=== PATIENT | female | born 2000 | race Caucasian/White ===

== ENCOUNTER 2020-05-10 15:48 | Observation (INO) | payer BC, SELFPAY ==
[2020-05-10 15:30] VITALS: BP 113/63; PULSE 75
[2020-05-10 15:41] VITALS: BP 107/68; PULSE 68; BMI 32.3
[2020-05-10] MEDS: BETAMETHASONE SOD PHOS/ACETATE 30 MG/5 ML VIAL 12 MG IM (16:04)
[2020-05-10 16:08] LABS: Add Urine Microscopic? YES; Amorphous Sediment Urine Few; Appearance Urine Clear (Clear); Bilirubin Urine Negative (Negative); Blood Urine Negative (Negative); Color Urine Straw (Yellow); Glucose Urine UA Negative (Negative); Ketones Urine Negative (Negative); Leukocyte Esterase Ur Trace LEU/UL (Negative); Nitrate Urine Negative (Negative); Protein Urine Negative (Negative); RBC Urine 0-2 /hpf (0-2); Specific Grav Ur 1.006 (1.001-1.035); Squamous Epithelial Cell Urine Many /hpf (Few); Urobilinogen Urine Negative mg/dL (<2.0)
--- NOTE | 2020-05-10 16:08 | OBADM ---
This patient, Marva Benavides, admitted to the OB room OB Post 117 for observation. Patient/family oriented to hospital policies and general routines including ID bracelet, bed and alarms, visiting hours, pain management, procedures, bathroom and other care routines, personal items, smoking policy, room service/diet, call light, and visiting hours. Patient/Family are encouraged to report perceived risks to care and to ask questions if they do not understand what they are told or what they should do.
--- NOTE | 2020-05-18 08:20 | PM.OBTRLD ---
OB - Triage/Final Diagnosis Evaluation Laboratory results: Laboratory Tests 05/10/20 15:59 Urine Color Straw Urine Appearance Clear Urine pH 7.0 Ur Specific [place] 1.006 Urine Protein Negative Urine Glucose (UA) Negative Urine Ketones Negative Ur Blood (Man) Negative Urine Nitrate Negative Urine Bilirubin Negative Urine Urobilinogen Negative Leukocyte Esterase Rfl Trace H Urine RBC 0-2 Urine WBC 4-6 H Ur Squamous Epith Cells Many H Amorphous Sediment Few H Final Diagnosis (1) contractions: Code(s): O47.9 - False labor, unspecified Status: Acute
== END 2020-05-10 16:34 | disposition home or self-care (01) ==
LOC: ANHOBPP 15:48
PROVIDERS: Admitting Provider Obstetrics & Gynecology; PCP Family Medicine; Visit Provider Obstetrics & Gynecology
DX: O47.9 False labor, unspecified (principal); Z3A.00 Weeks of gestation of pregnancy not specified
CPT/HCPCS: 59025; 81001; 96372; G0378; G0379; J0702

== ENCOUNTER 2020-05-11 15:47 | Outpatient (CLI) | payer BC, SELFPAY ==
[2020-05-11] MEDS: BETAMETHASONE SOD PHOS/ACETATE 30 MG/5 ML VIAL 12 MG IM (16:11)
== END 2020-05-11 15:48 | disposition home or self-care (01) ==
LOC: ANHOBOP 15:55
PROVIDERS: PCP Family Medicine; Visit Provider Obstetrics & Gynecology
DX: O36.8990 Maternal care for other specified fetal problems, unspecified trimester, not applicable or unspecified (principal); Z3A.00 Weeks of gestation of pregnancy not specified
CPT/HCPCS: 96372; J0702

== ENCOUNTER 2020-05-27 10:41 | Observation (INO) | payer BC, SELFPAY ==
[2020-05-27 11:05] VITALS: TEMP 36.4
[2020-05-27 11:10] VITALS: BMI 28.3
--- NOTE | 2020-05-27 11:15 | OBADM ---
This patient, Marva Benavides, admitted to the OB room Labor/Delivery/Recovery 105 for observation. Patient/family oriented to hospital policies and general routines including ID bracelet, bed and alarms, visiting hours, pain management, procedures, bathroom and other care routines, personal items, smoking policy, room service/diet, and visiting hours. Patient/Family are encouraged to report perceived risks to care and to ask questions if they do not understand what they are told or what they should do.
--- NOTE | 2020-06-06 09:44 | PM.OBTRLD ---
OB - Triage/Final Diagnosis Visit Information Comments/Additional reasons for admission: I have assessed the risk for this patient, Marva Benavides, and determined that she would benefit from observation care. Final Diagnosis (1) contractions: Code(s): O47.9 - False labor, unspecified Status: Acute
== END 2020-05-27 12:40 | disposition home or self-care (01) ==
PROVIDERS: Admitting Provider Obstetrics & Gynecology; PCP Family Medicine; Visit Provider Obstetrics & Gynecology
DX: O47.03 False labor before 37 completed weeks of gestation, third trimester (principal); Z3A.36 36 weeks gestation of pregnancy
CPT/HCPCS: G0378; G0379

== ENCOUNTER 2020-06-14 05:58 | Inpatient (IN) | payer BC, SELFPAY ==
[2020-06-14] VITALS (162 sets, daily range): BP systolic 83–182; BP diastolic 39–103; PULSE 65–137; RESP 16–17; TEMP 36.2–37; O2SAT 93–100; BMI 32.5
--- OUTSIDE RECORDS SUMMARY | 2020-06-14 06:05 | XMS_ITS | Encounter Summary ---
:2000 Author Care Team Providers Name Role Phone Jessica Vera MD Primary Care Provider [phone] Reason for Visit return OB visit Assessment and Plan 1. Routine care ? streptococcus group B, cul ture, vaginal or rectal Discussion Note: None recorded.Patient educational handouts: No information available. Plan of Care Reminders Provider Appointments None recorded. ? ? Lab Streptococcus Gat [facility], Culture, Vaginal 05/18/2020 [facility] (Lab) or Rectal Referral None recorded. ? ? Procedures None recorded. ? ? Surgeries None recorded. ? ? Imaging None recorded. ? ? Medications No Medications Reported Notes: ; fe supplement d aily Medications Administered None recorded. Vitals Weight Blood Pressure 205 lbs 118/76 mm[Hg] Results Lab Results None recorded. Allergies Code Code System Name Reaction Severity Onset NKDA ? ? ? Problems Name Status Onset Date Source ? Active 12/08/2019 ? Tinea Corporis Active ? ?
--- OUTSIDE RECORDS SUMMARY | 2020-06-14 06:05 | XMS_ITS ---
:2000 Author Care Team Providers Name Role Phone VERONICA VILLAVICENCIO MD Primary Care Provider [phone] Allergies Code Code System Name Reaction Severity Status Onset NKDA ? Medications Name Status Start Date Stop Date ? ? acetaminophen 325 mg tablet Completed ? 11/27 TAKE 1 TABLET BY MOUTH EVERY 8 HOURS NEEDED Liliya-D 24 Hour 180 mg-240 mg tablet,extended release Complete d ? 12/08/2019 TAKE 1 TABLET BY MOUTH DAILY amitriptyline 10 mg tablet Completed ? 12/07 amoxicillin 500 mg capsule Completed ? 12/07 TAKE ONE CAPSULE BY MOUTH EVERY 8 HOURS FOR 7 DAYS amoxicillin 500 mg tablet Completed ? 2013 Take 1 tablet twice a day by oral route for 10 days. amoxicillin 875 mg tablet Unknown ? Not av ailable TK 1 T PO Q 12 H amoxicillin 875 mg-potassium clavulanate 125 mg tablet Completed ? 12/08/2019 TK 1 T PO Q 12 H FOR 7 DAYS azithromycin 250 mg tablet Unknown ? Not a vailable TK 2 TS PO ON DAY 1 THEN TK 1 T PO DAILY FOR 4 DAYS azithromycin 500 mg tablet Completed ? 12/07 TAKE 1 TABLET BY MOUTH TWICE A DAY benzonatate 100 mg capsule Completed ? 12/07 Take 1 capsule 3 times a day by oral route as needed for 10 day s. buspirone 10 mg tablet Completed ? 9 TAKE 1 TABLET BY MOUTH TWICE A DAY cephalexin 500 mg capsule Completed ? 2016 TAKE 1 CAPSULE(S) TWICE A DAY BY ORAL ROUTE FOR 7 DAYS. clobetasol 0.05 % scalp solution Unknown ? Not available APPLY A FEW DROPS TO SCALP EACH TRINIDAD
--- OUTSIDE RECORDS SUMMARY | 2020-06-14 06:05 | XMS_ITS | Encounter Summary ---
:2000 Author Care Team Providers Name Role Phone Jessica Vera MD Primary Care Provider [phone] Reason for Visit return OB visit Assessment and Plan 1. Routine care Discussion Note: None recorded.Patient educational handouts: No information available. Plan of Care Reminders Provider Appointments None ? ? recorded. Lab None ? ? recorded. Referral None ? ? recorded. Procedures None ? ? recorded. Surgeries None ? ? recorded. Imaging None ? ? recorded. Medications No Medications Reported Notes: ; fe supplement d aily Medications Administered None recorded. Vitals Weight Blood Pressure 206 lbs 108/78 mm[Hg] Results Lab Results None recorded. Allergies Code Code System Name Reaction Severity Onset NKDA ? ? ? Problems Name Status Onset Date Source ? Active 12/08/2019 ? Tinea Corporis Active ? ? Insomnia Active ? ? Seizure Disorder Active ? ? Otitis Media Active ? ? Referred Otalgia Active ? ?
--- OUTSIDE RECORDS SUMMARY | 2020-06-14 06:05 | XMS_ITS | Encounter Summary ---
:2000 Author Care Team Providers Name Role Phone Jessica Vera MD Primary Care Provider [phone] Reason for Visit return OB visit Assessment [...] Administered None recorded. Vitals Weight Blood Pressure 206.8 lbs 122/82 mm[Hg] Results Lab Results None recorded. Allergies Code Code System Name Reaction Severity Onset NKDA ? ? ? Problems Name Status Onset Date Source ? Active 12/08/2019 ? Tinea Corporis Active ? ? Insomnia Active ? ? Seizure Disorder Active ? ? Otitis Media Active ? ? Referred Otalgia Active ? ?
--- OUTSIDE RECORDS SUMMARY | 2020-06-14 06:05 | XMS_ITS | Encounter Summary ---
:2000 Author Care Team Providers Name Role Phone Jessica Vera MD Primary Care Provider [phone] Reason for Visit return OB visit Assessment [...] Administered None recorded. Vitals Weight Blood Pressure 203 lbs 122/82 mm[Hg] Results Lab Results None recorded. Allergies Code Code System Name Reaction Severity Onset NKDA ? ? ? Problems Name Status Onset Date Source ? Active 12/08/2019 ? Tinea Corporis Active ? ? Insomnia Active ? ? Seizure Disorder Active ? ? Otitis Media Active ? ? Referred Otalgia Active ? ?
--- OUTSIDE RECORDS SUMMARY | 2020-06-14 06:05 | XMS_ITS | Encounter Summary ---
:2000 Author Care Team Providers Name Role Phone Jessica Vera MD Primary Care Provider [phone] Reason for Visit return OB visit Assessment [...] Administered None recorded. Vitals Weight Blood Pressure 205.6 lbs 100/70 mm[Hg] Results Lab Results None recorded. Allergies Code Code System Name Reaction Severity Onset NKDA ? ? ? Problems Name Status Onset Date Source ? Active 12/08/2019 ? Tinea Corporis Active ? ? Insomnia Active ? ? Seizure Disorder Active ? ? Otitis Media Active ? ? Referred Otalgia Active ? ?
--- OUTSIDE RECORDS SUMMARY | 2020-06-14 06:05 | XMS_ITS | Encounter Summary ---
:2000 Author Care Team Providers Name Role Phone Jessica Vera MD Primary Care Provider [phone] Reason for Visit return OB visit Assessment [...] recorded. Vitals Weight Blood Pressure 205 lbs 110/78 mm[Hg] Results Lab Results None recorded. Allergies Code Code System Name Reaction Severity Onset NKDA ? ? ? Problems Name Status Onset Date Source ? Active 12/08/2019 ? Tinea Corporis Active ? ? Insomnia Active ? ? Seizure Disorder Active ? ? Otitis Media Active ? ? Referred Otalgia Active ? ?
--- OUTSIDE RECORDS SUMMARY | 2020-06-14 06:05 | XMS_ITS | Encounter Summary ---
:2000 Author Care Team Providers Name Role Phone Jessica Vera MD Primary Care Provider [phone] Reason for Visit return OB visit Assessment [...] recorded. Vitals Weight Blood Pressure 205 lbs 112/70 mm[Hg] Results Lab Results None recorded. Allergies Code Code System Name Reaction Severity Onset NKDA ? ? ? Problems Name Status Onset Date Source ? Active 12/08/2019 ? Tinea Corporis Active ? ? Insomnia Active ? ? Seizure Disorder Active ? ? Otitis Media Active ? ? Referred Otalgia Active ? ?
--- NOTE | 2020-06-14 06:41 | P.HP_ITS ---
H&P: HPI History of Present Illness Date/Time: 06/14/20 06:41 Chief Complaint: induction of labor Narrative: Marva Benavides is a 20yo @ 39.0wks (EMIL 06/21/20) who presents for scheduled induction of labor. She reports good movement. No vaginal bleeding or leakage of fluid. She has has regular care. Her is complicated by: - H/o childhood seizure disorder - H/o contractions, s/p ANCS - Varicella and rubella non-immune Review of Systems Constitutional: Constitutional: Denies chills and Denies fever(s) Eyes: Eyes: Denies change in vision Cardiovascular: Cardiovascular: Denies chest pain and Denies rapid heart rate Respiratory: Respiratory: Denies cough and Denies dyspnea Gastrointestinal: Gastrointestinal: Denies nausea and Denies vomiting Genitourinary: Genitourinary: Denies vaginal discharge Neurologic: Denies headache(s) Psychiatric: Psychiatric: Denies anxiety and Denies depression [facility] Family History Family History Sibling Down syndrome Social History Social History Substance use: never Gender identity (if verbalized by the patient): Female Spiritual care concerns: No Meds Home Medications and Allergies Home Medications Medication Instructions Recorded Confirmed Type PNV cmb#95-ferrous fumarate-FA 1 tablet PO DAILY 05/23/20 05/23/20 History [] ferrous sulfate [Iron (ferrous 325 mg PO DAILY 05/23/20 05/23/20 History sulfate)] Allergies Allergy/AdvReac Type Severity Reaction Status Date / Time No Known Allergies Allergy Mild Verified 05/10/20 16:25 Vital Signs Vital Signs - 24 hr 06/14/20 06:19 Pulse Rate 94 Blood Pressure 115/78 Exam Const: General: cooperative, comfortable and no acute distress Resp: Effort & Inspection: normal respiratory effort and able to speak in complete sentences Cardio: Rate: regular rate GI: GI Palp: No abdominal tenderness and Yes Soft to palpation : Other: FHT's: 140's/ mod luis/ + accels/ no decels - cat 1 TOCO: irregular contractions Membranes: AROM, clear 0710 Presentation: cephalic Cervix: 3.5/50/-2 Skin: General skin exam: normal color Neuro: General: patient oriented x3 Extrem: General: normal to inspection Psych: Appearance: grossly normal Affect: normal affect Attitude: cooperative Assessment and Plan Assessment and plan (1) Encounter for induction of labor: Code(s): Z34.90 - Encounter for supervision of normal , unspecified, unspecified trimester Status: Acute (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
[2020-06-14 06:58] LABS: Basophils Percent Auto 0.3 % (0.2-1.2); Eosinophils Absolute Auto 0.1 K/mm3 (0-0.3); Eosinophils Percent Auto 0.6 % (0-4.4); Hematocrit 35.7 % (37.0-47.0); Hemoglobin 11.9 g/dL (12.0-15.0); Immature Granulocyte Absolute 0.19 K/mm3 (0.00-0.031); Immature Granulocyte Percent A 1.2 % (0-0.5); Lymphocytes Absolute Auto 2.08 K/mm3 (0.9-3.2); Lymphocytes Percent Auto 13.6 % (18.3-44.2); Mean Corpuscular HGB Conc 33.3 g/dl (32-36); Mean Corpuscular Hemoglobin 30.4 pg (26-34); Mean Corpuscular Volume 91.1 fl (80-100); Mean Platelet Volume 10.2 fl (7.4-10.4); Monocytes Absolute Auto 0.9 K/mm3 (0.1-0.6); Monocytes Percent Auto 5.6 % (2.6-8.5); Neutrophils Absolute Auto 12.1 K/mm3 (1.3-6.7); Neutrophils Percent Auto 78.7 % (45.5-73.1); Platelet Count Result 282 k/mm3 (150-375); Red Blood Count 3.92 M/mm3 (4.2-5.4); Red Cell Distribution Width 13.4 % (11.5-14.5); White Blood Count 15.3 K/mm3 (4.5-10.0)
[2020-06-14] MEDS: LACTATED RINGERS 1,000 ML 125 ML IV CONT ×2 (07:01→11:31)
[2020-06-14] MEDS: OXYTOCIN 30 UNITS/NS 500 ML 30 UNITS/500 ML BAG IV CONT (07:02)
--- NOTE | 2020-06-14 07:09 | LDADM ---
This patient, Marva Benavides, was admitted to Labor/Delivery/Recovery 107 on 06/14/20 at 05:58. Plans for labor, pain management and were discussed with patient. Patient/family oriented to hospital policies and general routines including ID bracelet, bed and alarms, visiting hours, pain management, procedures, bathroom and other care routines, personal items, smoking policy, room service/diet and guest tray routines, security routines, and visiting hours. Patient/Family are encouraged to report perceived risks to care and to ask questions if they do not understand what they are told or what they should do. See OBIX for further documentation.
--- NOTE | 2020-06-14 07:12 | WPDHPUPDATE1 ---
History and Physical Update Update Date/Time: 06/14/20 07:12 History and Physical has been reviewed, including an updated exam of the patient. There are NO changes in the patient's condition. Risks, benefits, and alternatives have been discussed and questions answered. Patient agrees to proceed with procedure.
[2020-06-14 10:32] LABS: Rapid Plasma Reagin Non-Reactive (NonReactive)
[2020-06-14] MEDS: fentaNYL CITRATE INJ (*CRX) 100 MCG/2 ML VIAL IV PUSH (11:31)
--- NOTE | 2020-06-14 11:45 | WPDANESEPP ---
Anes - Eval Pre Procedure Procedure: labor epidural Date/Time: 06/14/20 11:45 Surgeon: thu Preop Diagnosis: pain during labor Pre Op Diagnosis: IOL Patient Data Age: 20 Gender: F Height: 5 ft 7 in Weight: 94.09 kg Last Vital Signs Temp 36.4 C 06/14/20 09:00 Pulse 79 06/14/20 11:15 BP 115/76 06/14/20 11:15 Allergies Allergy/AdvReac Type Severity Reaction Status Date / Time No Known Allergies Allergy Mild Verified 05/10/20 16:25 Home Medications Medication Instructions Recorded Confirmed Type PNV cmb#95-ferrous fumarate-FA 1 tablet PO DAILY 05/23/20 05/23/20 History [] ferrous sulfate [Iron (ferrous 325 mg PO DAILY 05/23/20 05/23/20 History sulfate)] Laboratory Tests 06/14/20 06/14/20 06/14/20 06:19 06:19 06:19 WBC 15.3 K/mm3 H K/mm3 (4.5-10.0) RBC 3.92 M/mm3 L M/mm3 (4.2-5.4) Hgb 11.9 g/dL L g/dL (12.0-15.0) Hct 35.7 % L % (37.0-47.0) MCV 91.1 fl fl (80-100) MCH 30.4 pg pg (26-34) MCHC 33.3 g/dl g/dl (32-36) RDW 13.4 % % (11.5-14.5) Plt Count 282 k/mm3 k/mm3 (150-375) MPV 10.2 fl fl (7.4-10.4) Immature Gran % (Auto) 1.2 % H % (0-0.5) Neut % (Auto) 78.7 % H % (45.5-73.1) Lymph % (Auto) 13.6 % L % (18.3-44.2) [place] % (Auto) 5.6 % % (2.6-8.5) Eos % (Auto) 0.6 % % (0-4.4) Baso % (Auto) 0.3 % % (0.2-1.2) Lymph # (Auto) 2.08 K/mm3 K/mm3 (0.9-3.2) [place] # (Auto) 0.9 K/mm3 H K/mm3 (0.1-0.6) Eos # (Auto) 0.1 K/mm3 K/mm3 (0-0.3) Baso # (Auto) 0.0 K/mm3 K/mm3 (0.0-0.1) Abs Immat Gran (auto) 0.19 K/mm3 H K/mm3 (0.00-0.031) Absolute Neuts (auto) 12.1 K/mm3 H K/mm3 (1.3-6.7) Absolute Nucleated RBC 0.0 K/mm3 K/mm3 (0.0-0.012) Nucleated RBC % 0.0 % % (0.0-0.2) RPR Non-reactive (NonReactive) Blood Type O Positive Antibody Screen Negative : gestational age (EMIL 06/21/20) Patient hx anesthesia problems: none Family hx anesthesia problems: none PMFSH Family History Family History Sibling Down syndrome Social History Social History Smoking status: Never smoker Substance use: never Gender identity (if verbalized by the patient): Female Spiritual care concerns: No Exam Day of Procedure 06/14/20 11:45 Patient weight: obese Heart: regular rate and rhythm Lungs: clear to auscultation Neurological: alert and oriented
--- NOTE | 2020-06-14 12:38 | PM.OBPNLAB ---
Pain Control Date/time seen: 06/14/20 12:38 Pain control: epidural Pelvic Exam Dilation (cm): 4 Effacement (%): 70 station: -2 Amniotic membrane status: Ruptured Contractions Monitor mode: External Contraction frequency: 2 Contraction pattern: Regular Status status: Category ll Comments: 130's/ mod luis/ + accels/ occasional mild variable decels -- overall reassuring Assessment and Plan Pitocin rate (mU/min): 26 Assessment: induction ongoing Plan: continuous present management
--- NOTE | 2020-06-14 17:02 | PM.OBPNLAB ---
Pain Control Date/time seen: 06/14/20 17:02 Pain control: tolerating well and epidural Pelvic Exam Dilation (cm): 7 (.5) Effacement (%): 100 station: -1 Amniotic membrane status: Ruptured Contractions Monitor mode: External Contraction frequency: 2 Contraction pattern: Regular Status status: Category ll Comments: 130's/mod luis/ + accels/ occasional variables - overall reassuring Assessment and Plan Pitocin rate (mU/min): 20 Assessment: active labor Plan: continuous present management
--- NOTE | 2020-06-14 18:42 | PM.OBPRVD ---
OB - Delivery Note Procedure Delivery date: 06/14/20 events: Labor Induction Intrapartal events: Deceleration Induction method: per pitocin protocol Delivery augmentation: rupture of membranes Delivery monitor: external FHT and internal uterine Route of delivery: Laceration Description: Vaginal - 1st Degree (right) and Vaginal - 2nd Degree (left) Delivery repair: vicryl Quantitative Blood Loss (ml): 300 Anesthesia type: Epidural Disposition: floor Narrative: Patient rapidly progressed to complete dilation with desire to push. With good maternal effort after approximately 45 minutes, she delivered the head over intact perineum. No nuchal cord was palpated. She easily delivered the shoulders and body without complications. The had spontaneous cry and was immediately placed skin to skin. Delayed cord clamping was performed. The umbilical cord was then clamped and cut. With Pitocin running and gentle downward traction on the umbilical cord the placenta delivered without complications. Bimanual massage was performed showing good uterine tone. The cervix, vagina, perineum were examined and bilateral labial lacerations were noted. The labial lacerations were repaired using 3 0 Vicryl in a running fashion. Good hemostasis was noted. Good uterine tone and hemostasis were noted. Sponge, lap, instrument, and needle counts were correct at the end of the procedure. Mom and baby were left bonding in the birthing suite in a stable condition. [place] Baby Date of : 06/14/20 Time of : 18:23 Weeks of gestation at delivery: 39 Infant gender: Female Weight (pounds): 6 Weight (ounces): 15 presentation: vertex position: Left Occiput Anterior Placenta delivery description: Expressed cord vessel description: 3 Vessels score one minute: 9 score five minutes: 9
[2020-06-14] MEDS: OXYTOCIN 30 UNITS/NS 500 ML 30 UNITS/500 ML BAG 125 UNITS IV CONT (18:47)
[2020-06-14] MEDS: IBUPROFEN 600 MG TABLET PO (21:20)
[2020-06-14] MEDS: BENZOCAINE 20% AER SPR (*SP) 56 GM CAN 1 SPRAY TOPICAL (21:21)
[2020-06-14] MEDS: WITCH HAZEL 40 PADS 1 PAD TOPICAL (21:21)
--- NOTE | 2020-06-14 21:52 | OBPPTRN ---
Patient transferred to post room #292 via wheelchair with in crib. Support person present. Oriented to unit, room, information board, rooming in, admission packet and security measures. Patient verbalizes understanding.
[2020-06-15 04:50] VITALS: BP 100/61; PULSE 80; RESP 18; TEMP 36.9; O2SAT 98
[2020-06-15 05:54] LABS: Hematocrit 30.3 % (37.0-47.0)
--- NOTE | 2020-06-15 07:24 | WPDANLDPN2 ---
Anes-Prog Note L&D Date/Time: 06/15/20 07:24 Comfortable throughout: labor and delivery Neuraxial method: epidural Epidural/Spinal procedure site: clean & non-tender Neuro status: Neuro function grossly intact. Cardiovascular status: normal Respiratory status: normal Airway patency: baseline Mental status: baseline Post-Op hydration status: normal Vital Signs: Last Vital Signs Temp 36.9 C 06/15/20 04:50 Pulse 80 06/15/20 04:50 Resp 18 06/15/20 04:50 BP 100/61 06/15/20 04:50 Pulse Ox 98 06/15/20 04:50 Pain score (VAS): 0 I/O: Intake & Output 06/14/20 06/14/20 06/15/20 15:59 23:59 07:59 Intake Total 1000 500 Output Total 73 Balance 1000 427 Post-procedural complaints: none Patient feedback: Patient satisfied with anesthetic care.
[2020-06-15] MEDS: ACETAMINOPHEN 325 MG TABLET 650 MG PO (11:03)
[2020-06-15 12:00] VITALS: BP 101/64; PULSE 96; RESP 18; O2SAT 100
[2020-06-15] MEDS: TETANUS,DIPHTHERIA,AC PERTUSSIS ADULT (0.5 ML) BOOSTRIX IM (13:17)
[2020-06-15 18:00] VITALS: BP 103/65; PULSE 62; PULSE 80; RESP 18; O2SAT 100; O2SAT 98
--- NOTE | 2020-06-15 18:04 | PM.OBPNVD ---
OB - PN: Subj Subjective Date/time seen: 06/15/20 18:04 PPD#1 Marva reports doing well today. She reports mild vaginal pain and cramping but improved with PO meds. Her bleeding has lightened. She has tolerated regular diet w/o issue. She has voided and passed gas. She has ambulated w/o symptoms of anemia. She is breast feeding. She would like to go home tomorrow. She denies fever, chills, CP, SOB, dizziness, ALEJANDRA, vision changes, N/V, or palpitations. OB - PN: Obj Data Labs CBC & Chem 7: 06/15/20 04:54 Labs: Laboratory Results - last 24 hr 06/15/20 04:54 Hgb 10.0 L Hct 30.3 L OB - PN A/P Assessment and Plan (1) Vaginal delivery: Code(s): O80 - Encounter for full-term uncomplicated delivery Status: Acute Plan day: 1 Plan: routine care, discharge home (tomorrow) and other (pelvic rest, takes meds as prescribed, f/u in 4 wks, ER return precautions discussed) Time Spent With Patient Time: Total time spent is greater than 50% in coordination of care (as documented) at patient's floor/unit and/or counseling patient: Review of Systems Review of Systems: All systems reviewed & are unremarkable except as noted in HPI and below (HPI) Exam Const: General: cooperative, healthy appearing, comfortable and no acute distress Resp: Effort & Inspection: normal respiratory effort and able to speak in complete sentences Auscultation: clear to auscultation bilaterally Cardio: Rate: regular rate GI: Inspection: non-distended GI Palp: No abdominal tenderness and Yes Soft to palpation Auscultation: normal bowel sounds : Other: fundus firm below umbilicus Skin: General skin exam: normal color Neuro: General: patient oriented x3 Extrem: General: normal to inspection Psych: Appearance: grossly normal Affect: normal affect Attitude: cooperative
[2020-06-15 20:30] VITALS: BP 105/67; PULSE 81; RESP 18; TEMP 36.8
[2020-06-16 07:45] VITALS: BP 102/64; PULSE 63; RESP 16; TEMP 36.8; O2SAT 100
[2020-06-16] MEDS: ACETAMINOPHEN 325 MG TABLET 650 MG PO (09:03)
[2020-06-16] MEDS: DOCUSATE SODIUM 100 MG CAPSULE PO (09:03)
[2020-06-17 10:43] VITALS: BP 95/67; PULSE 73; RESP 20; TEMP 36.9; O2SAT 100
--- NOTE | 2020-06-20 12:21 | PM.OBDSVD ---
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 - Epilepsy, unspecified, not intractable, without status epilepticus Status: Acute OB - DS: Summary OB Procedures : NST and Ultrasound OB Procedures Intrapartum: Spontaneous Vag Delivery OB Procedures: : None Peripartum Data Delivery Method: Natural Vaginal Laceration Description: Vaginal - 1st Degree and Vaginal - 2nd Degree complications: none [place] 1: Gender: Female Disposition of : home Status at Discharge Functional status at discharge: independent ambulation Overall status at discharge: patient is back to baseline Time Spent with Patient Time attestation: Total time spent providing and/or coordinating discharge services: Time spent: Less than 30 minutes Exam Const: General: cooperative, healthy appearing, comfortable and no acute distress Resp: Effort & Inspection: normal respiratory effort and able to speak in complete sentences Auscultation: clear to auscultation bilaterally Cardio: Rate: regular rate GI: Inspection: normal to inspection and non-distended GI Palp: Yes Soft to palpation Auscultation: normal bowel sounds : Other: fundus firm below umbilicus Skin: General skin exam: normal color Neuro: General: patient oriented x3 Extrem: General: normal to inspection Psych: Appearance: grossly normal Affect: normal affect Attitude: cooperative Discharge Plan Discharge Attending physician on discharge: Ayesha Jones Discharging Clinician: Ayesha Jones Anticipated Discharge Date/Time: 06/16/20 12:00 Patient Disposition: Home, Self-Care Activity: pelvic rest Diet: regular Discharge Instructions: Education: Mom and Baby Guide Given to: Mother Follow-Up: Call your delivering provider's office for an appointment to be seen in: 4 Weeks Mom and baby should come to the [facility] for the follow-up appointment. Appointment Date/Time: June 17, 2020 at 10:00 am What to expect at your follow-up visit: Blood Pressure Check Physical Assessment Call [phone] if you are unable to keep your appointment time. BREAST CARE: * Wear a snug supportive bra. * For engorgement discomfort: Breast Feeding: * Apply warm moist washcloths * Express milk as needed to relieve engorgement * Wear loose clothing Bottle Feeding: * May apply ice packs * For sore nipples: * Identify correct latch-on * Apply warm moist washcloths before and after nursing * Air dry nipples after nursing * May apply Lansinoh cream to nipples EPISIOTOMY/PERINEAL CARE: * Until bleeding stops, use your dot bottle after urinating * Change your pad frequently throughout the day * You may take sitz baths several times a day (fill your bathtub with warm water and soak for 20 minutes.) Do NOT bathe in the water * No tub baths until seen by your physician - You may shower ACTIVITY: * Rest as much as possible. * Do not exercise or lift anything heavier than your baby (such as laundry or other children.) * Avoid stairs or driving as much as possible. * Do not put anything into the vagina. No douching, tampons, or sexual activity until seen by physician. NOTIFY PHYSICIAN IF YOU HAVE ANY QUESTIONS OR IF ANY OF THE FOLLOWING SYMPTOMS OCCUR: * If your episiotomy or incision becomes red, swollen, or more painful than what you have experienced in the hospital. * If your vaginal bleeding becomes foul smelling. * If your vaginal bleeding becomes more heavy than a period or if your bleeding changes from pink to bright red. However, you may pass an occa
== END 2020-06-16 13:03 | disposition home or self-care (01) | DRG 560 ==
LOC: ANHLDR 06:03 → ANHOB2 22:16
PROVIDERS: Admitting Provider Obstetrics & Gynecology; PCP Family Medicine; Visit Provider Obstetrics & Gynecology
DX: O99.354 Diseases of the nervous system complicating childbirth (principal); Z37.0 Single live birth; Z3A.39 39 weeks gestation of pregnancy; G40.909 Epilepsy, unspecified, not intractable, without status epilepticus; O99.214 Obesity complicating childbirth; E66.9 Obesity, unspecified; O36.8330 Maternal care for abnormalities of the fetal heart rate or rhythm, third trimester, not applicable or unspecified; O70.1 Second degree perineal laceration during delivery
CPT/HCPCS: 36415; 85014; 85018; 85025; 86592; 86850; 86900; 86901; 90715; A9270; J2590; J2795; J3010; J7120

== ENCOUNTER 2020-10-06 07:59 | Outpatient (CLI) | payer BC, SELFPAY | END 2020-10-06 08:00 | disposition home or self-care (01) | PROVIDERS: Visit Provider Obstetrics & Gynecology | DX: N92.5 Other specified irregular menstruation (principal) | CPT/HCPCS: 36415; 84702 ==

== ENCOUNTER 2020-10-08 12:08 | Outpatient (CLI) | payer BC, SELFPAY | END 2020-10-08 12:09 | disposition home or self-care (01) | PROVIDERS: Visit Provider Obstetrics & Gynecology | DX: N92.5 Other specified irregular menstruation (principal) | CPT/HCPCS: 36415; 84702 ==

== ENCOUNTER 2021-04-16 13:10 | Observation (INO) | payer BC, SELFPAY ==
[2021-04-16 13:38] VITALS: BP 98/60; PULSE 76
[2021-04-16 13:40] VITALS: TEMP 36.9
[2021-04-16 13:45] LABS: Add Urine Microscopic? YES; Appearance Urine Clear (Clear); Bilirubin Urine Negative (Negative); Blood Urine Negative (Negative); Color Urine Yellow (Yellow); Glucose Urine UA Negative (Negative); Ketones Urine Negative (Negative); Leukocyte Esterase Ur Negative LEU/UL (Negative); Mucus Urine Heavy /lpf; Nitrate Urine Negative (Negative); Protein Urine 1+ mg/dL (Negative); RBC Urine 0-2 /hpf (0-2); Specific Grav Ur 1.025 (1.001-1.035); Squamous Epithelial Cell Urine Many /hpf (Few)
--- NOTE | 2021-04-16 14:14 | OBADM ---
This patient, Marva Benavides, admitted to the OB room OB Post 117 for observation. Patient/family oriented to hospital policies and general routines including ID bracelet, bed and alarms, visiting hours, pain management, procedures, bathroom and other care routines, personal items, smoking policy, room service/diet, and visiting hours. Patient/Family are encouraged to report perceived risks to care and to ask questions if they do not understand what they are told or what they should do.
--- NOTE | 2021-04-19 11:54 | P.PNOB_ITS ---
OB - Triage/Final Diagnosis Visit Information Reason for evaluation: threatened labor Comments/Additional reasons for admission: I have assessed the risk for this patient, Marva Benavides, and determined that she would benefit from observation care. Evaluation Laboratory results: Laboratory Tests 04/16/21 13:33 Urine Color Yellow Urine Appearance Clear Urine pH 6.0 Ur Specific [place] 1.025 Urine Protein 1+ H Urine Glucose (UA) Negative Urine Ketones Negative Ur Blood (Man) Negative Urine Nitrate Negative Urine Bilirubin Negative Urine Urobilinogen 4.0 H Leukocyte Esterase Rfl Negative Urine RBC 0-2 Urine WBC 4-6 H Ur Squamous Epith Cells Many H Urine Mucus Heavy H
== END 2021-04-16 14:10 | disposition home or self-care (01) ==
PROVIDERS: Admitting Provider Obstetrics & Gynecology; Visit Provider Obstetrics & Gynecology
DX: O47.03 False labor before 37 completed weeks of gestation, third trimester (principal); Z3A.31 31 weeks gestation of pregnancy
CPT/HCPCS: 81001; G0378; G0379

== ENCOUNTER 2021-04-19 18:19 | Observation (INO) | payer BC, SELFPAY ==
[2021-04-19 18:49] VITALS: BP 123/68; PULSE 65
[2021-04-19 19:00] VITALS: BP 105/59; PULSE 68
[2021-04-19 19:14] VITALS: BP 104/67; PULSE 63
[2021-04-19 19:22] VITALS: BMI 33.5
--- NOTE | 2021-04-19 19:23 | OBADM ---
This patient, Mavra Benavides, admitted to the OB room OB Post 111 for observation. Patient/family oriented to hospital policies and general routines including ID bracelet, bed and alarms, visiting hours, pain management, procedures, bathroom and other care routines, personal items, smoking policy, room service/diet, and visiting hours. Patient/Family are encouraged to report perceived risks to care and to ask questions if they do not understand what they are told or what they should do.
[2021-04-19] MEDS: BETAMETHASONE SOD PHOS/ACETATE 30 MG/5 ML VIAL 12 MG IM (19:27)
[2021-04-19 22:42] VITALS: BP 115/70; PULSE 75
--- NOTE | 2021-04-20 15:07 | PM.OBTRLD ---
OB - Triage/Final Diagnosis Visit Information Comments/Additional reasons for admission: I have assessed the risk for this patient, Marva Benavides, and determined that she would benefit from observation care. Evaluation Vital signs: Vital Signs - 24 hr 04/19/21 18:49 04/19/21 19:00 04/19/21 19:14 Pulse Rate 65 68 63 Blood Pressure 123/68 105/59 L 104/67 04/19/21 22:42 Pulse Rate 75 Blood Pressure 115/70 Final Diagnosis (1) Premature cervical dilation in third trimester: Code(s): O34.33 - Maternal care for cervical incompetence, third trimester Status: Acute
== END 2021-04-19 23:49 | disposition home or self-care (01) ==
PROVIDERS: Admitting Provider Obstetrics & Gynecology; Visit Provider Obstetrics & Gynecology
DX: O34.33 Maternal care for cervical incompetence, third trimester (principal); Z3A.32 32 weeks gestation of pregnancy
CPT/HCPCS: 96372; G0378; G0379; J0702

== ENCOUNTER 2021-04-20 17:05 | Outpatient (CLI) | payer BC, SELFPAY ==
--- NOTE | ~2021-04-20 | US_ITS ---
EXAMINATION: US OB limited w BPP DATE: 04/20/2021 17:39 INDICATION: Assess biophysical profile and amniotic fluid index for early cervical dilation during th ird trimester of . TECHNIQUE: Real-time pelvic ultrasound was performed. The interpreting radiologist was not present fo r the study. COMPARISON: None. FINDINGS: There is a single living fetus in vertex presentation. The placenta is fundal. heart rate is 1 39 beats per minute (bpm). Normal amniotic fluid index of 10.2 cm (5th%-95%: 8.6-24.2 cm at 32 weeks estimated gestational age) Biophysical profile performed by the technologist: breathing (30 sec sustained breathing in 30 minutes): 2 out of 2 movement (3 gross body movements in 30 minutes): 2 out of 2 tone (one episode of pwioyka-cqupjhohp-rbbvixa limb movement): 2 out of 2 Amniotic fluid pocket (2 cm): 2 out of 2 Total score: 8 out of 8 IMPRESSION: 1. Single living fetus in vertex presentation with heart rate of 139 bpm. 2. Biophysical profile 8 out of 8. 3. Normal amniotic fluid index of 10.2 cm . Reviewed, dictated and finalized at location H. DENTIAL PROGRAM DIRECTOR
[2021-04-20 18:06] VITALS: BP 98/63; PULSE 64
[2021-04-20] MEDS: BETAMETHASONE SOD PHOS/ACETATE 30 MG/5 ML VIAL 12 MG IM (18:09)
== END 2021-04-20 18:06 | disposition home or self-care (01) ==
LOC: ANHOBOP 17:12
PROVIDERS: Visit Provider Obstetrics & Gynecology
DX: O34.33 Maternal care for cervical incompetence, third trimester (principal); Z3A.32 32 weeks gestation of pregnancy
CPT/HCPCS: 59025; 76815; 76819; 96372; J0702

== ENCOUNTER 2021-05-19 11:03 | Observation (INO) | payer BC, SELFPAY ==
[2021-05-19 11:31] VITALS: BP 104/64; PULSE 73
[2021-05-19 11:42] VITALS: BP 104/64; PULSE 79
--- NOTE | 2021-05-19 11:45 | OBADM ---
This patient, Marva Benavides, admitted to the OB room Labor/Delivery/Recovery 106 for observation. Patient/family oriented to hospital policies and general routines including ID bracelet, bed and alarms, visiting hours, pain management, procedures, bathroom and other care routines, personal items, smoking policy, room service/diet, and visiting hours. Patient/Family are encouraged to report perceived risks to care and to ask questions if they do not understand what they are told or what they should do.
--- NOTE | 2021-05-19 11:55 | PC.NURSE ---
1140- SPoke with Dr. Jones, Rom plus negative. Orders to discharge to home.
--- NOTE | 2021-05-23 11:03 | PM.OBTRLD ---
OB - Triage/Final Diagnosis Visit Information Comments/Additional reasons for admission: I have assessed the risk for this patient, Marva Benavides, and determined that she would benefit from observation care. Final Diagnosis (1) Vaginal discharge during : Code(s): O26.899 - Other specified related conditions, unspecified trimester; N89.8 - Other specified noninflammatory disorders of vagina Status: Acute
== END 2021-05-19 11:50 | disposition home or self-care (01) ==
PROVIDERS: Admitting Provider Obstetrics & Gynecology; Visit Provider Obstetrics & Gynecology
DX: O26.893 Other specified pregnancy related conditions, third trimester (principal); N89.8 Other specified noninflammatory disorders of vagina; Z3A.36 36 weeks gestation of pregnancy
CPT/HCPCS: 59025; 84112; G0378; G0379

== ENCOUNTER 2021-05-23 11:33 | Observation (INO) | payer BC, SELFPAY ==
[2021-05-23 11:45] VITALS: BMI 33.5
[2021-05-23 13:23] VITALS: BP 104/67; PULSE 66
--- NOTE | 2021-05-24 09:21 | PM.OBTRLD ---
OB - Triage/Final Diagnosis Visit Information Comments/Additional reasons for admission: I have assessed the risk for this patient, Marva Benavides, and determined that she would benefit from observation care. Final Diagnosis (1) Abdominal pain affecting : Code(s): O26.899 - Other specified related conditions, unspecified trimester; R10.9 - Unspecified abdominal pain Status: Acute
== END 2021-05-23 13:45 | disposition home or self-care (01) ==
PROVIDERS: Admitting Provider Obstetrics & Gynecology; Visit Provider Obstetrics & Gynecology
DX: O26.893 Other specified pregnancy related conditions, third trimester (principal); R10.9 Unspecified abdominal pain; Z3A.37 37 weeks gestation of pregnancy
CPT/HCPCS: G0378; G0379

== ENCOUNTER 2021-05-26 01:34 | Inpatient (IN) | payer BC, SELFPAY ==
[2021-05-26] VITALS (86 sets, daily range): BP systolic 85–129; BP diastolic 48–86; PULSE 63–167; RESP 16–20; TEMP 36.6–36.8; O2SAT 98–100; BMI 33.5
[2021-05-26 02:16] LABS: Basophils Absolute Auto 0.1 K/mm3 (0.0-0.1); Basophils Percent Auto 0.3 % (0.2-1.2); Eosinophils Absolute Auto 0.1 K/mm3 (0-0.3); Eosinophils Percent Auto 0.6 % (0-4.4); Hematocrit 32.9 % (37.0-47.0); Hemoglobin 10.8 g/dL (12.0-15.0); Immature Granulocyte Absolute 0.11 K/mm3 (0.00-0.031); Immature Granulocyte Percent A 0.7 % (0-0.5); Lymphocytes Absolute Auto 2.23 K/mm3 (0.9-3.2); Lymphocytes Percent Auto 13.4 % (18.3-44.2); Mean Corpuscular HGB Conc 32.8 g/dl (32-36); Mean Corpuscular Hemoglobin 30.8 pg (26-34); Mean Corpuscular Volume 93.7 fl (80-100); Mean Platelet Volume 9.9 fl (7.4-10.4); Monocytes Percent Auto 6.2 % (2.6-8.5); Neutrophils Absolute Auto 13.1 K/mm3 (1.3-6.7); Neutrophils Percent Auto 78.8 % (45.5-73.1); Platelet Count Result 268 k/mm3 (150-375); Red Blood Count 3.51 M/mm3 (4.2-5.4); Red Cell Distribution Width 13.3 % (11.5-14.5); White Blood Count 16.6 K/mm3 (4.5-10.0)
[2021-05-26] MEDS: LACTATED RINGERS 1,000 ML 125 ML IV CONT ×2 (02:17→10:23)
[2021-05-26] MEDS: AMPICILLIN 2 GM/NS 100 ML 2 GM/100 ML BAG IVPB (02:18)
--- NOTE | 2021-05-26 02:39 | LDADM ---
This patient, Marva Benavides, was admitted to Labor/Delivery/Recovery 104 on 05/26/21 at 01:34. Plans for labor, pain management and were discussed with patient. Patient/family oriented to hospital policies and general routines including ID bracelet, bed and alarms, visiting hours, pain management, procedures, bathroom and other care routines, personal items, smoking policy, room service/diet and guest tray routines, security routines, and visiting hours. Patient/Family are encouraged to report perceived risks to care and to ask questions if they do not understand what they are told or what they should do. See OBIX for further documentation.
[2021-05-26 03:09] LABS: HIV 1/2 Ab P24 Ag Result Negative (Negative)
[2021-05-26] MEDS: OXYTOCIN 30 UNITS/NS 500 ML 30 UNITS/500 ML BAG IV CONT (07:58)
[2021-05-26] MEDS: AMPICILLIN 1 GM/NS 50 ML 1 GM/50 ML BAG IVPB (07:58)
--- NOTE | 2021-05-26 08:03 | PM.IMHP ---
H&P: HPI History of Present Illness Date/Time: 05/26/21 08:03 Marva is a 21yo @ 37.6wks (EMIL 06/10/21) who presented to L&D with contractions and subsequently ruptured membranes, clear, at 0042. She denies vaginal bleeding. Good movement. Her is complicated by: - Short interpregnancy interval - Advanced cervical dilation; s/p ANCS @ 32wks - low positive rubella; varicella non-immune - Elevated glucola; 3hr not performed - h/o childhood seizures, last in 2017 Chief Complaint: leaking Review of Systems Review of Systems: All systems reviewed & are unremarkable except as noted in HPI and below (HPI) PMFSH Past Medical History Medical History Fracture of wrist Insertion of Nexplanon (~08/03/16) Nexplanon removal (~01/07/17) Surgical History Surgical History H/O neck surgery Family History Family History Sibling Down syndrome Grandparent Cancer Diabetes mellitus Social History Social History Smoking status: Never smoker Second hand tobacco smoke exposure: No Alcohol intake: never Substance use: never Gender identity (if verbalized by the patient): Female Sexual Orientation (if Verbalized by the Patient): Straight or Heterosexual Spiritual care concerns: No Meds Home Medications and Allergies Home Medications Medication Instructions Recorded Confirmed Type acetaminophen [Mapap 650 mg PO Q6H PRN 10 Days #60 06/15/20 05/26/21 Rx (acetaminophen)] tablet docusate sodium 100 mg PO BID PRN 30 Days #60 cap 06/15/20 05/26/21 Rx ferrous sulfate [Iron (ferrous 325 mg PO DAILY 30 Days #60 tablet 06/15/20 05/26/21 Rx sulfate)] Gummies 2 tablet PO DAILY 04/20/21 05/26/21 History Allergies Allergy/AdvReac Type Severity Reaction Status Date / Time No Known Allergies Allergy Mild Verified 05/26/21 02:45 Vital Signs Vital Signs - 24 hr 05/26/21 02:01 05/26/21 02:16 05/26/21 02:31 Temperature Pulse Rate 83 96 69 Blood Pressure 116/62 117/82 115/66 05/26/21 03:01 05/26/21 03:30 05/26/21 03:31 Temperature 98.2 F Pulse Rate 63 70 Blood Pressure 109/58 L 103/61 05/26/21 04:00 05/26/21 04:31 05/26/21 05:01 Temperature Pulse Rate 70 70 74 Blood Pressure 115/72 109/61 106/66 05/26/21 05:31 05/26/21 06:01 05/26/21 06:31 Temperature Pulse Rate 70 79 69 Blood Pressure 109/64 120/67 116/60 05/26/21 07:01 05/26/21 07:31 05/26/21 08:01 Temperature Pulse Rate 82 77 65 Blood Pressure 123/68 118/68 99/65 L 05/26/21 08:02 Temperature 98.2 F Pulse Rate Blood Pressure Exam Const: General: cooperative, comfortable and no acute distress Nutritional Appearance: obese Resp: Effort & Inspection: normal respiratory effort Cardio: Rate: regular rate GI: GI Palp: Yes Soft to palpation and No Tenderness to palpation present (GI) : Other: FHT's: 130's/ mod luis/ + accels/ no decels - cat 1 TOCO: ctx's q4min Cervix: 4/70/-2 Membranes: SROM, clear 0042 presentation: cephalic Skin: General skin exam: normal color Neuro: General: patient oriented x3 Extrem: General: normal to inspection Psych: Appearance: grossly normal Affect: normal affect Attitude: cooperative H&P: Results Labs Labs: Short CBC 05/26/21 Range/Units 02:09 WBC 16.6 H (4.5-10.0) K/mm3 Hgb 10.8 L (12.0-15.0) g/dL Hct 32.9 L (37.0-47.0) % Plt Count 268 (150-375) k/mm3 Assessment and Plan Assessment and plan (1) SROM (spontaneous rupture of membranes): Status: Acute (2) : Qualifiers: Weeks of gestation: 37 weeks Qualified Code(s): Z3A.37 - 37 weeks gestation of Code(s): Z34.90 - Encounter for supervision of normal , unspecified, unspecified
--- NOTE | 2021-05-26 08:13 | WPDHPUPDATE1 ---
History and Physical Update Update Date/Time: 05/26/21 08:13 History and Physical has been reviewed, including an updated exam of the patient. There are NO changes in the patient's condition. Risks, benefits, and alternatives have been discussed and questions answered. Patient agrees to proceed with procedure.
[2021-05-26] MEDS: fentaNYL CITRATE INJ (*CRX) 100 MCG/2 ML VIAL 50 MCG IV PUSH (09:39)
[2021-05-26 10:07] LABS: Rapid Plasma Reagin Non-Reactive (NonReactive)
--- NOTE | 2021-05-26 11:59 | PM.OBPNLAB ---
Pain Control Date/time seen: 05/26/21 11:59 Pain control: epidural Pelvic Exam Dilation (cm): 5 (.5) Effacement (%): 80 station: -2 Amniotic membrane status: Leaking (SROM, clear 0042) Contractions Monitor mode: Internal (placed on this exam) Contraction frequency: 2 (-4) Contraction pattern: Regular Status status: Category ll Comments: occasional variables Assessment and Plan Pitocin rate (mU/min): 6 Assessment: induction ongoing Plan: continuous present management Comments: - IUPC placed on this exam; if variables continue will start amnioinfusion
[2021-05-26] MEDS: SODIUM CHLORIDE 0.9% IV 300 ML 180 ML I-UTERINE (12:33)
--- NOTE | 2021-05-26 13:27 | PM.OBPRVD ---
OB - Delivery Note Procedure Delivery date: 05/26/21 events: Premature Rupture of Membrane Intrapartal events: Deceleration Delivery augmentation: pitocin Delivery monitor: external FHT and internal uterine Laceration Description: None Specimen: No Quantitative Blood Loss (ml): 200 Anesthesia type: Epidural Disposition: floor Baby Date of : 05/26/21 Time of : 13:14 Weeks of gestation at delivery: 37 (.6) gender: Male Weight (pounds): 6 Weight (ounces): 13 presentation: vertex position: Left Occiput Anterior Placenta delivery description: Expressed cord vessel description: 3 Vessels, Nuchal Cord, Loose, Reduced and Delayed Cord Clamping score one minute: 9 score five minutes: 9 Narrative: Brand up rapidly progressed to complete dilation. She pushed with good maternal effort for 3 contractions. She delivered the infant's head over intact perineum. A nuchal cord was palpated loose and was reduced. She easily delivered the 's shoulders and body without complication. The was immediately placed skin to skin. Delayed cord clamping was performed. The umbilical cord was then clamped and cut. A segment of the cord was collected for cord gases. The remaining cord blood was collected for typing. With Pitocin running and gentle downward traction on the cord, the placenta delivered without complications. Bimanual massage was performed and good uterine tone with minimal bleeding was noted. Patient was examined and no lacerations were identified. Sponge, lap, instrument, and needle counts were correct at the end of the procedure. Mom and baby were left bonding in the birthing suite in a stable condition. [facility] Delivery Billing Delivery Delivery: Delivery Charge
--- NOTE | 2021-05-26 13:37 | WPDANESEPPF ---
Anes - Initial Pre Proc Eval Date/Time: 05/26/21 13:37 Surgeon: Ayesha Jones MD Pre Op Diagnosis: Leaking Patient Data Age: 21 Gender: F Height: 1.7 m Weight: 97 kg Last Vital Signs Temp 36.7 C 05/26/21 11:34 Pulse 93 05/26/21 13:31 BP 118/68 05/26/21 13:31 Pulse Ox 100 05/26/21 13:13 Allergies Allergy/AdvReac Type Severity Reaction Status Date / Time No Known Allergies Allergy Mild Verified 05/26/21 02:45 Home Medications Medication Instructions Recorded Confirmed Type acetaminophen [Mapap 650 mg PO Q6H PRN 10 Days #60 06/15/20 05/26/21 Rx (acetaminophen)] tablet docusate sodium 100 mg PO BID PRN 30 Days #60 cap 06/15/20 05/26/21 Rx ferrous sulfate [Iron (ferrous 325 mg PO DAILY 30 Days #60 tablet 06/15/20 05/26/21 Rx sulfate)] Gummies 2 tablet PO DAILY 04/20/21 05/26/21 History Laboratory Tests 05/26/21 05/26/21 05/26/21 02:09 02:09 02:09 WBC 16.6 K/mm3 H K/mm3 (4.5-10.0) RBC 3.51 M/mm3 L M/mm3 (4.2-5.4) Hgb 10.8 g/dL L g/dL (12.0-15.0) Hct 32.9 % L % (37.0-47.0) MCV 93.7 fl fl (80-100) MCH 30.8 pg pg (26-34) MCHC 32.8 g/dl g/dl (32-36) RDW 13.3 % % (11.5-14.5) Plt Count 268 k/mm3 k/mm3 (150-375) MPV 9.9 fl fl (7.4-10.4) Immature Gran % (Auto) 0.7 % H % (0-0.5) Neut % (Auto) 78.8 % H % (45.5-73.1) Lymph % (Auto) 13.4 % L % (18.3-44.2) [place] % (Auto) 6.2 % % (2.6-8.5) Eos % (Auto) 0.6 % % (0-4.4) Baso % (Auto) 0.3 % % (0.2-1.2) Lymph # (Auto) 2.23 K/mm3 K/mm3 (0.9-3.2) [place] # (Auto) 1.0 K/mm3 H K/mm3 (0.1-0.6) Eos # (Auto) 0.1 K/mm3 K/mm3 (0-0.3) Baso # (Auto) 0.1 K/mm3 K/mm3 (0.0-0.1) Abs Immat Gran (auto) 0.11 K/mm3 H K/mm3 (0.00-0.031) Absolute Neuts (auto) 13.1 K/mm3 H K/mm3 (1.3-6.7) Absolute Nucleated RBC 0.0 K/mm3 K/mm3 (0.0-0.012) Nucleated RBC % 0.0 % % (0.0-0.2) RPR Non-reactive (NonReactive) HIV 1&2 Ab/P24 Ag 4thGn Blood Type O Positive Antibody Screen Negative 05/26/21 02:09 WBC RBC Hgb Hct MCV MCH MCHC RDW Plt Count MPV Immature Gran % (Auto) Neut % (Auto) Lymph % (Auto) [place] % (Auto) Eos % (Auto) Baso % (Auto) Lymph # (Auto) [place] # (Auto) Eos # (Auto) Baso # (Auto) Abs Immat Gran (auto) Absolute Neuts (auto) Absolute Nucleated RBC Nucleated RBC % RPR HIV 1&2 Ab/P24 Ag 4thGn Negative (Negative) Blood Type Antibody Screen Patient hx anesthesia problems: none Family hx anesthesia problems: none Results Review: All pre-operative results and documents have been reviewed as part of the pre-operative evaluation. [facility] Past Medical History Medical History Fracture of wrist Insertion of Nexplanon (~08/03/16) Juvenile seizure disorder Nexplanon removal (~01/07/17) Surgical History Surgical History H/O neck surgery Family History Family History Sibling Down syndrome Grandparent Cancer Diabetes mellitus Social History Social History Smoking status: Never smoker Second hand tobacco smoke exposure: No Alcohol intake: never Substance use: never Gender identity (if verbalized by the patient): Female Sexual Orientation (if Verbalized by the Patient): Straight or Heterosexual Spiritual care concerns: No Anes - Eval Final PreProcedure Day of Procedure 05/26/21 13:37 Patient weigh
[2021-05-26] MEDS: OXYTOCIN 30 UNITS/NS 500 ML 30 UNITS/500 ML BAG 125 UNITS IV CONT (13:51)
--- NOTE | 2021-05-26 16:09 | OBPPTRN ---
Patient transferred to post room # 285 via wheelchair. Support person present. Oriented to unit, room, information board, rooming in, admission packet and security measures. Patient verbalizes understanding.
[2021-05-27 03:40] VITALS: BP 100/64; PULSE 72; RESP 18; TEMP 36.9; O2SAT 100
[2021-05-27 05:08] LABS: Hemoglobin 10.7 g/dL (12.0-15.0)
[2021-05-27 07:45] VITALS: BP 103/62; PULSE 67; RESP 18; TEMP 37.6; O2SAT 100
--- NOTE | 2021-05-27 08:56 | P.PNOB_ITS ---
OB - PN: Subj Subjective Date/time seen: 05/27/21 08:26 Narrative: PPD#1 Marva reports doing well today. Her bleeding is vp mobile products. Her pain is controlled. She is tolerating regular diet, voiding, passing gas, and ambulating without issues. She is bottle feeding. She would like her son circumcised. OB - PN: Obj Data Labs CBC & Chem 7: 05/27/21 03:28 Labs: Laboratory Results - last 24 hr 05/26/21 05/27/21 02:09 03:28 Hgb 10.7 L Hct 33.0 L RPR Non-reactive OB - PN A/P Assessment and Plan (1) Normal vaginal delivery of second : Code(s): O80 - Encounter for full-term uncomplicated delivery Status: Acute Plan day: 1 Plan: routine care Comments: - depo provera to be given today prior to discharge - Pelvic rest; take meds as prescribed - ER return precautions: fever, n/v/abd pain, bleeding, HTN Time Spent With Patient Time: Total time spent is greater than 50% in coordination of care (as claire ortega) at patient's floor/unit and/or counseling patient: Review of Systems Constitutional: Constitutional: Denies chills, Denies fever(s) and Denies headache(s) Eyes: Eyes: Denies change in vision ENT: Denies dizziness and Denies headache(s) Cardiovascular: Cardiovascular: Denies chest pain, Denies palpitations and Denies dyspnea Respiratory: Respiratory: Denies cough and Denies dyspnea Gastrointestinal: Gastrointestinal: Denies nausea and Denies vomiting Neurologic: Denies dizziness and Denies headache(s) Endocrine: Endocrine: Denies palpitations Exam Const: General: cooperative, comfortable and no acute distress Orientation/consciousness: patient oriented x3 Resp: Effort & Inspection: normal respiratory effort Auscultation: clear to auscultation bilaterally Cardio: Rate: regular rate GI: Inspection: non-distended GI Palp: No abdominal tenderness and Yes Soft to palpation Auscultation: normal bowel sounds : Other: fundus firm Skin: General skin exam: normal color Neuro: General: patient oriented x3 Extrem: General: normal to inspection Psych: Appearance: grossly normal Affect: normal affect Attitude: co operative
--- NOTE | 2021-05-27 08:57 | PM.OBDSVD ---
DS: Admitting Diagnosis Discharge Date 05/27/21 Admitting Diagnosis leakage of fluid DS: Discharge Diagnosis Discharge Diagnosis (1) Normal vaginal delivery of second : Code(s): O80 - Encounter for full-term uncomplicated delivery Status: Acute OB - DS: Summary OB Procedures : NST, Ultrasound and PTL Mgmt OB Procedures Intrapartum: Spontaneous Vag Delivery OB Procedures: : None Peripartum Data Infant Delivery Method: Natural Vaginal Laceration Description: None complications: none 1: Gender: Male Disposition of : home Status at Discharge Functional status at discharge: independent ambulation Overall status at discharge: patient is back to baseline Time Spent with Patient Time attestation: Total time spent providing and/or coordinating discharge services: Time spent: Less than 30 minutes Exam Const: General: cooperative, comfortable and no acute distress Nutritional Appearance: obese Orientation/consciousness: patient oriented x3 Resp: Effort & Inspection: normal respiratory effort Auscultation: clear to auscultation bilaterally Cardio: Rate: regular rate GI: Inspection: non-distended GI Palp: No abdominal tenderness and Yes Soft to palpation Auscultation: normal bowel sounds : Other: fundus firm Skin: General skin exam: normal color Neuro: General: patient oriented x3 Extrem: General: normal to inspection Psych: Appearance: grossly normal Affect: normal affect Attitude: cooperative DS: Data Data Completed and Pending Labs on day of discharge: Labs from last 24 hours 05/27/21 05/26/21 03:28 02:09 Hgb 10.7 L Hct 33.0 L RPR Non-reactive Discharge Plan Discharge Attending physician on discharge: Ayesha Jones Discharging Clinician: Ayesha Jones Anticipated Discharge Date/Time: 05/27/21 17:00 Patient Disposition: Home, Self-Care Activity: may shower, may drive after 2 weeks and pelvic rest Diet: regular Patient Instructions: Antibiotic Form Stand Alone Forms: General Discharge Information Follow-up/Referrals: Ayesha Jones MD [Physician] - 4 Weeks Discharge Medications: New acetaminophen [Mapap (acetaminophen)] 325 mg Tablet 650 mg PO Q6H PRN (Reason: Mild Pain (1-3) Or Headache) 10 Days Qty: 80 RF: 0 ibuprofen 600 mg Tablet 600 mg PO Q6H PRN (Reason: Cramping) 10 Days Qty: 40 RF: 0 Continued ferrous sulfate [Iron (ferrous sulfate)] 325 mg (65 mg iron) Tablet 325 mg PO DAILY 30 Days Qty: 60 RF: 0 Gummies 400 mcg-35 mg- 25 mg-5 mg Tablet,Chewable 2 tablet PO DAILY 90 Days Qty: 90 RF: 0 Discontinued acetaminophen [Mapap (acetaminophen)] 325 mg Tablet 650 mg PO Q6H PRN (Reason: Mild Pain (1-3) Or Headache) 10 Days Qty: 60 RF: 0 docusate sodium 100 mg Capsule 100 mg PO BID PRN (Reason: Constipation) 30 Days Qty: 60 RF: 0 Date of admission: 05/26/21 01:34 Primary Care Provider: PHYSICIAN,TRAINING AND DEVELOPMENT SPECIALIST Admitting Provider: Ayesha Jones Attending physician on admission: Ayesha Jones Condition: Stable
[2021-05-27] MEDS: ACETAMINOPHEN 325 MG TABLET 650 MG PO ×2 (09:53→15:37)
[2021-05-27 12:00] VITALS: BP 117/70; PULSE 68; RESP 16; TEMP 36.9; O2SAT 100
[2021-05-27] MEDS: medroxyPROGESTERone ACETATE IM 150 MG/ML SYR IM (15:22)
[2021-05-29 08:46] VITALS: BP 101/69; PULSE 81; RESP 16; TEMP 36.9; O2SAT 99
== END 2021-05-27 16:40 | disposition home or self-care (01) | DRG 560 ==
LOC: ANHLDR 01:59 → ANHOB2 16:42
PROVIDERS: Admitting Provider Obstetrics & Gynecology; Visit Provider Obstetrics & Gynecology
DX: O42.92 Full-term premature rupture of membranes, unspecified as to length of time between rupture and onset of labor (principal); O99.214 Obesity complicating childbirth; E66.9 Obesity, unspecified; O76 Abnormality in fetal heart rate and rhythm complicating labor and delivery; O69.81X0 Labor and delivery complicated by cord around neck, without compression, not applicable or unspecified; Z3A.37 37 weeks gestation of pregnancy; Z37.0 Single live birth
CPT/HCPCS: 36415; 84112; 85014; 85018; 85025; 86592; 86703; 86850; 86900; 86901; A9270; G0432; J0290; J1050; J2590; J2795; J3010; J7030; J7120